=== PATIENT | female | born 1935 | race Caucasian/White ===

== ENCOUNTER 2021-06-24 07:38 | Day surgery (SDC) | payer MEDICARE ==
[2021-06-18 12:13] LABS: ALBUMIN 3.9 G/DL (3.4-5.0); ALBUMIN/GLOBULIN RATIO 1.2 (1.1-1.5); ALKALINE PHOSPHATASE 50 IU/L (46-116); BLOOD UREA NITROGEN 25 MG/DL (7-18); BUN/CREATININE RATIO 17.1 (6.6-38.0); CHLORIDE 108 MMOL/L (99-107); CREATININE 1.46 MG/DL (0.40-0.90); PRE OP ALT 22 U/L (30-65); PRE OP ANION GAP 9 (8-16); PRE OP AST 15 U/L (10-37); PRE OP BILIRUB, TOTAL 0.3 MG/DL (0.0-1.0); PRE OP GLUCOSE 91 MG/DL (70-104); PRE OP POTASSIUM 5.2 MMOL/L (3.4-5.1); PRE OP SODIUM 146 MMOL/L (135-145); TOTAL PROTEIN 7.2 G/DL (6.4-8.2); eGFR 34 ML/MIN
[2021-06-18 12:19] LABS: BASOPHILS % (AUTO) 0.5 % (0-1); EOSINOPHILS # (AUTO) 0.1 X10'3 (0-0.9); EOSINOPHILS % (AUTO) 1.9 % (0-6); LYMPHOCYTES # (AUTO) 0.7 X10'3 (1.1-4.8); LYMPHOCYTES % (AUTO) 25.1 % (21-51); MEAN CORPUSCULAR HEMOGLOBIN 32.5 PG (27.0-31.0); MEAN CORPUSCULAR HGB CONC 33.8 g/dL (33.0-36.5); MEAN CORPUSCULAR VOLUME 96.4 FL (78-98); MEAN PLATELET VOLUME 7.8 FL (7.4-10.4); MONOCYTES # (AUTO) 0.5 X10'3 (0-0.9); MONOCYTES % (AUTO) 17.3 % (2-12); NEUTROPHILS # (AUTO) 1.6 X10'3 (1.8-7.7); NEUTROPHILS % (AUTO) 55.2 % (42-75); PRE OP HEMATOCRIT 31.1 % (35.0-45.0); PRE OP PLATELET COUNT 190 X10'3 (140-440); RED BLOOD COUNT 3.23 X10'6 (4.20-5.60); RED CELL DISTRIBUTION WIDTH 14.7 % (11.5-14.5)
[2021-06-18 12:21] LABS: PRE OP HEMOGLOBIN 10.5 g/dL (12.0-16.0)
[2021-06-18 13:14] LABS: PLATELET ESTIMATE NORMAL; POIKILOCYTOSIS FEW; POLYCHROMASIA FEW; TOTAL CELLS COUNTED 100
[2021-06-24] VITALS (15 sets, daily range): BP systolic 152–186; BP diastolic 67–144
[~2021-06-24] VITALS: Ht 167.6 cm; Wt 59.0 kg
[~2021-06-24 07:38] MED LIST: ACET325C6 PO; ASPI-1265 PO; ATOR-2 PO; BUPIVAcaine 0.5% inj/PF 30 ML ONE; BUSP15TA7 PO; FOLI0.4T14 PO; GABA-530 PO; HYDR-3972 PO; HYDR12.55 PO; ICOS1CAP PO; INDOCYANINE GREEN 25 MG/10 ML VIAL IV ONE; LIDOcaine 1% 30ml preserv. free vial ONE; ZOLP5TAB8 PO; cefazolin/dext.iso 2gm/50ml IV ONE; famotidine 20mg tablet PO ONE; ringers solution, lacted 1,000 ML IV SCH
[2021-06-24 08:45] LABS: BASOPHILS % (AUTO) 0.5 % (0-1); EOSINOPHILS # (AUTO) 0.1 X10'3 (0-0.9); EOSINOPHILS % (AUTO) 2.5 % (0-6); LYMPHOCYTES # (AUTO) 0.7 X10'3 (1.1-4.8); LYMPHOCYTES % (AUTO) 28.8 % (21-51); MEAN CORPUSCULAR HEMOGLOBIN 32.4 PG (27.0-31.0); MEAN CORPUSCULAR HGB CONC 33.7 g/dL (33.0-36.5); MEAN CORPUSCULAR VOLUME 96.2 FL (78-98); MEAN PLATELET VOLUME 7.8 FL (7.4-10.4); MONOCYTES # (AUTO) 0.5 X10'3 (0-0.9); MONOCYTES % (AUTO) 19.5 % (2-12); NEUTROPHILS # (AUTO) 1.1 X10'3 (1.8-7.7); NEUTROPHILS % (AUTO) 48.7 % (42-75); PRE OP HEMATOCRIT 28.1 % (35.0-45.0); PRE OP PLATELET COUNT 158 X10'3 (140-440); RED BLOOD COUNT 2.92 X10'6 (4.20-5.60); RED CELL DISTRIBUTION WIDTH 14.5 % (11.5-14.5)
[2021-06-24 08:50] LABS: PRE OP HEMOGLOBIN 9.4 g/dL (12.0-16.0)
[2021-06-24 09:17] LABS: ALBUMIN 3.8 G/DL (3.4-5.0); ALBUMIN/GLOBULIN RATIO 1.2 (1.1-1.5); ALKALINE PHOSPHATASE 42 IU/L (46-116); BLOOD UREA NITROGEN 31 MG/DL (7-18); BUN/CREATININE RATIO 18.8 (6.6-38.0); CALCIUM 9.2 MG/DL (8.5-10.1); CHLORIDE 109 MMOL/L (99-107); CREATININE 1.65 MG/DL (0.40-0.90); PRE OP ALT 21 U/L (30-65); PRE OP ANION GAP 9 (8-16); PRE OP AST 16 U/L (10-37); PRE OP BILIRUB, TOTAL 0.3 MG/DL (0.0-1.0); PRE OP GLUCOSE 92 MG/DL (70-104); PRE OP POTASSIUM 4.8 MMOL/L (3.4-5.1); PRE OP SODIUM 143 MMOL/L (135-145); TOTAL CARBON DIOXIDE 25.5 MMOL/L (24-32); eGFR 30 ML/MIN
[2021-06-24] MEDS ORDERED: BUPIVAcaine/PF 5 MG/ML 10ML VIAL IJ ONE (09:18)
[2021-06-24] MEDS ORDERED: ringers solution, lacted 1,000 ML IV SCH (09:30)
[2021-06-24] MEDS ORDERED: meperidine/PF 25mg/ml syringe IV PRN ×2 (09:30)
[2021-06-24] MEDS ORDERED: ondansetron/PF 4mg/2ml inj IV PRN (09:30)
[2021-06-24] MEDS ORDERED: proCHLORperazine 10 MG/2 ml inj IV PRN (09:30)
[2021-06-24] MEDS ORDERED: morphine 4 MG/ML inj SYRINge IV PRN (09:30)
[2021-06-24] MEDS ORDERED: morphine 2 MG/ML inj. syringe IV PRN (09:30)
[2021-06-24] MEDS ORDERED: midazolam 1 mg/ML 2ml injection ONE (09:57)
[2021-06-24] MEDS ORDERED: fentaNYL/PF 50MCG/1 ML 2ML syringe ONE (09:57)
[2021-06-24] MEDS ORDERED: desflurane 240ml liquid inh. IH ONE (09:59)
[2021-06-24] MEDS ORDERED: glycopyrrolate 0.2mg/ml inj ONE (09:59)
[2021-06-24] MEDS ORDERED: dexamethasone sod phosphate 10mg/ml inj ONE (09:59)
[2021-06-24] MEDS ORDERED: neostigmine methylsulfate 1 MG/ML 10ml vial ONE (09:59)
[2021-06-24] MEDS ORDERED: ondansetron/PF 4mg/2ml inj ONE (09:59)
[2021-06-24 10:00] LABS: NUCLEATED RED BLOOD CELLS 1 /100WBC (0-0); PLATELET ESTIMATE NORMAL; TOTAL CELLS COUNTED 100
[2021-06-24] MEDS ORDERED: ATRACURIUM 10 MG/ML 5ML INJECTION IV ONE (10:01)
[2021-06-24] MEDS ORDERED: LIDOcaine 2% (20mg/ml) 5ml vial ONE (10:08)
[2021-06-24] MEDS ORDERED: propofol inj 20 ML IV ONE (10:08)
--- NOTE | 2021-06-24 11:29 | NUR ---
Received from OR via BED, LAP SITES X4 WITH DERMABOUD CDI, PT DROUSY PAINFUL MEDICATED WITH DEMEROL 12.5MG PT APEARS MORE COMFORTABLE. PT accompanied by Anesthesiologist DR GUTHRIE and report given by Anesthesiolgist AND GRAIN I FARMWORKER. Addendum: 06/24/21 at 1157 by Shelbi Biggs RN Amended: Links added.
[2021-06-24] MEDS: meperidine/PF 25mg/ml syringe IV PRN ×2 (11:38→12:26)
[2021-06-24] MEDS ORDERED: acetaminophen 1,000mg/100ml IV 100 ML IV ONE (11:40)
[2021-06-24] MEDS ORDERED: HYDROcodone/acetaminophen 5mg/325mg tablet PO PRN (11:45)
--- NOTE | 2021-06-24 15:19 | NUR ---
PT UP AND ABLE TO AMBULATE SAFELY WITH 1 ASSIST TO BR TO VOID. PAIN UNDER CONTROL. D/C INSTRUCTIONS GIVEN AND GONE OVER WITH PT AND PTS DAUGHTER WITH VERBAL UNDERSTANDING. PT DCD TO HOME VIA WC TO PRIVATE VEHICLE WITHOUT INCIDENT. PT STATES FAMILY MEMBER WILL BE STAYING WITH HER TO ASSIST. Addendum: 06/24/21 at 1539 by Shelbi Biggs RN Amended: Links added.
== END 2021-06-24 15:19 | disposition home or self-care (01) ==
LOC: PAS 07:38
PROVIDERS: ATTEND Surgery
DX: K80.00 Calculus of gallbladder with acute cholecystitis without obstruction (principal); G62.9 Polyneuropathy, unspecified; F32.9 Major depressive disorder, single episode, unspecified; D64.9 Anemia, unspecified; I10 Essential (primary) hypertension; F41.9 Anxiety disorder, unspecified; Z98.890 Other specified postprocedural states; Z79.82 Long term (current) use of aspirin; Z79.899 Other long term (current) drug therapy; Z91.09 Other allergy status, other than to drugs and biological substances; Z87.891 Personal history of nicotine dependence; Z72.89 Other problems related to lifestyle; Z98.49 Cataract extraction status, unspecified eye; Z86.14 Personal history of Methicillin resistant Staphylococcus aureus infection; Z20.822 Contact with and (suspected) exposure to COVID-19
CPT/HCPCS: 36415; 47563; 80053; 82948; 85025; 93005; J0131; J1100; J2001; J2175; J2250; J2405; J2704; J2710; J3010; J3490; J7120; U0003; U0005; Z7506; Z7508; Z7512; 85007; A4215; A4618; A7000